=== PATIENT | female | born 1965 | race Caucasian/White ===

== ENCOUNTER 2018-07-18 04:05 | Emergency (ER) | payer MEDICAID, OTHER ==
[~2018-07-18] VITALS: Wt 80.2 kg
[2018-07-18 04:11] VITALS: BP 177/104; PULSE 91; RESP 16; Wt 80.2 kg
--- NOTE | 2018-07-18 04:51 | ERD ---
ER Documentation Chief Complaint Chief Complaint right ear pain x 1 hr HPI 54-year-old female, previously healthy, presents to the emergency department complaining of right ear pain that started today. The pain is sharp, constant, associated with sore throat. The patient denies fever, no chills, no otorrhea no medications taken at this time for the pain. ROS All systems reviewed and are negative except as per history of present illness. Medications Home Meds Active Scripts Amoxicillin* (Amoxicillin*) 500 Mg Cap, 500 MG PO TID for 7 Days, CAP Prov:ALEXSANDER SIMONS MD 07/18/18 Ibuprofen* (Motrin*) 400 Mg Tab, 400 MG PO Q8, #15 TAB Prov:ALEXSANDER SIMONS MD 07/18/18 Neomycin/Polymyxin/Hydrocort* (Cortisporin* Otic) 10 Ml Susp, 4 DROP RIGHT EAR QID for 7 Days, #1 EA Prov:ALEXSANDER SIMONS MD 07/18/18 Allergies Allergies: Coded Allergies: No Known Allergy (Unverified , 07/18/18) PMhx/Soc Medical and Surgical Hx: pt denies Medical Hx History of Surgery: Yes (varacies) Hx Alcohol Use: No Hx Substance Use: No Hx Tobacco Use: No Smoking Status: Never smoker FmHx Family History: No diabetes, No coronary disease Physical Exam Vitals Vital Signs Date Temp Pulse Resp B/P (MAP) Pulse Ox O2 O2 Flow FiO2 Time Delivery Rate 07/18/18 97.6 91 16 177/104 96 04:11 (128) Physical Exam Patient alert, oriented, vital signs stable. HEENT: Normocephalic, atraumatic. EYES: PERRLA, EOMI, Sclera and conjunctiva appear normal. EARS: Right ear with insect in the external canal causing erythema and edema of the canal. Contralateral ear normal. THROAT: Erythematous oropharynx. NECK: Supple, No lymphadenopathy. Full ROM without pain or tenderness. HEART: RRR, no rubs, murmurs, clicks or gallops. LUNGS: Clear to auscultation. ABDOMEN: Soft, non-tender without masses or hepatosplenomegaly. EXTREMITIES: No edema bilaterally. BACK: Full ROM, no deformity, normal back exam NEURO: Cranial nerves grossly intact, no motor or sensory deficit Results 24 hrs Current Medications Medications Dose Sig/Huang Start Time Status Last (Trade) Ordered Route PRN Stop Time Admin Dose Reason Admin Ibuprofen 400 mg ONCE ONCE 07/18/18 DC 07/18/18 (Motrin) PO 05:30 05:30 07/18/18 05:31 650 mg ONCE ONCE 07/18/18 DC 07/18/18 Acetaminophen PO 05:30 05:30 (Tylenol 07/18/18 05:31 Tab) Procedures/MDM Vital signs stable, differential diagnosis include but not limited to: Foreign body, infection, eustachian dysfunction, allergies, tympanic membrane perforation. Physical examination and clinical presentation consistent most likely with foreign body of the right ear. During the ED course the patient remained stable, no new complaints. Clinical impression and treatment options discussed with mother who agrees with management. Foreign Body Removal Performed by: Indication: retained foreign body Location: Right ear Anesthesia: None Technique: Alligator forceps Foreign bodies recovered: Insect Post-procedure assessment: foreign body removed. No complications. Neurovascularly intact post procedure Patient tolerance: Patient tolerated the procedure well with no immediate complications The patient is stable to be treated outpatient and will be discharged home. The patient was instructed to follow up with the primary care provider in the next 48h. If symptoms persist, worsen or new symptoms develop, then patient should return to the ED immediately. Disclaimer: Inadvertent spelling and grammatical errors are likely due to EHR/dictation software use and do not reflect on the overall quality of patient care. Also, please note that the electronic time recorded on this note does not necessarily reflect the actual time of the patient encounter. Departure Diagnosis: Primary Impression: Foreign body in right ear, initial encounter Condition: Stable Additional Instructions: Muchas anne por [facility] para keenan servicio. Esperamos que en keenan visita a la maximo de emergencia keenan problema medico haya sido solucionado y que se sienta mucho mejor. Para estar seguros que keenan mejoria sigue en proceso, le pedimos el favor de hacer odalis piyush de seguimiento medico con keenan doctor primario en los proximos 2-4 robison. Lleve con usted estos documentos y las medicinas recetadas. Si odilon sintomas empeoran, NO SE ESPERE, por favor regrese a maximo de emergencia INMEDIATAMENTE. En jamil que usted no tenga un mdico de atencin primaria: Llame al mdico o clnica comunitaria de referencia que aparece abajo arnel las horas de consultorio para hacer odalis piyush para que le vean. CLINICAS: [facility] [phone] [address] [facility] [phone] [address] [facility] [phone] [address] [facility] [phone] [address] [facility] [phone] [address] [facility] [phone] ALEXSANDER BALES MD Jul 18, 2018 04:50
[2018-07-18] MEDS ORDERED: IBUP-1561 PO (05:08)
[2018-07-18] MEDS ORDERED: NPH10OT RIGHT EAR (05:08)
[2018-07-18] MEDS ORDERED: IBUPROFEN 200 MG TAB PO ONE (05:30)
[2018-07-18] MEDS ORDERED: ACETAMINOPHEN 325 MG TAB PO ONE (05:30)
[2018-07-18] MEDS ORDERED: AMOX500C2 PO (05:55)
== END 2018-07-18 06:05 | disposition home or self-care (01) ==
LOC: FTE 04:05
DX: T16.1XXA Foreign body in right ear, initial encounter (principal); X58.XXXA Exposure to other specified factors, initial encounter; Y92.9 Unspecified place or not applicable
CPT/HCPCS: Z7502; Z7610; 99283